=== PATIENT | male | born 2005 | race Caucasian/White ===

== ENCOUNTER 2024-09-26 13:13 | Emergency (ER) | payer BC, SELFPAY ==
[2024-09-26 13:14] VITALS: BP 119/87; PULSE 104; RESP 16; TEMP 36.4; O2SAT 98; BMI 25.8
[2024-09-26] MEDS: Lidocaine 1% (20 ml mdv) 20 ML Vial INFILT (15:00)
--- NOTE | 2024-09-26 15:32 | EDS_ITS ---
HPI History of Present Illness Chief Complaint: Laceration Informant: patient and spouse/S.O. Narrative Narrative: 19-year-old male presenting to the emergency room with left hand laceration. Patient was cutting an avocado with a kitchen knife when he sustained a laceration to the left ring finger. He notes some mild bleeding. Unsure of last tetanus but does not wish it to be updated. PFSH PFSH Allergy/AdvReac Type Severity Reaction Status Date / Time Penicillins (PCN) Allergy Unknown UNKNOWN Verified 09/26/24 13:14 Social History Smoking Status: Never smoker ROS ROS ED Constitutional Constitutional ED: Denies chills or weight loss Eyes Eyes: Denies change in vision or diplopia ENT ENT ED: Denies ear pain, rhinorrhea or sore throat Cardiovascular Cardiovascular: Denies chest pain, orthopnea, palpitations or racing heartbeat Respiratory/Chest Respiratory/Chest: Denies cough, dyspnea or orthopnea Gastrointestinal Gastrointestinal: Denies abdominal pain, diarrhea, nausea or vomiting Genitourinary Genitourinary ED: Denies dysuria, hematuria or urinary frequency Musculoskeletal Musculoskeletal: Denies arthralgias or myalgias Integumentary Reports other Details: Finger laceration ; Denies abscess or rash Neurologic Neurologic: Denies headache(s) or weakness Psychiatric Psychiatric: Denies anxiety, depression, suicidal ideation or suicidal thoughts Endocrine Endocrinology: Denies polydipsia, polyphagia or polyuria Allergic/Immunologic Allergic/Immunologic ED: Denies mouth swelling, tongue swelling or urticaria EXAM Physical Exam Const Vital Signs: 09/26/24 13:14 Temperature 97.6 F L Temperature Source Temporal Pulse Rate 104 H Respiratory Rate 16 Blood Pressure 119/87 H Blood Pressure Mean 97 Pulse Ox 98 Oxygen Delivery Method Room Air Positive well nourished and well developed General Appearance ED: well developed HEENT Reports normocephalic, head/scalp atraumatic and moist mucous membranes Eyes PERRL and EOMs intact bilaterally Neck no lymphadenopathy, supple and no JVD Resp normal respiratory effort and clear to auscultation bilaterally Cardio regular rate, regular rhythm and no murmurs GI normal to inspection, nondistended, normoactive bowel sounds and non-tender Palpation: soft Back/Spine no CVA tenderness and normal ROM Extremity normal to inspection General Extremety ED: Negative for edema General Extremity: Negative for edema Neuro oriented x3 and CN's II-XII intact bilaterally Sensorium / Orientation: alert Motor Exam: strength 5/5 throughout Psych mental status grossly normal Mood & Affect: Negative for depressed or tearful Skin no rashes or lesions noted Skin Narrative: There is a 2.5 cm V-shaped laceration over the dorsum of the left ring finger. There is mild venous bleeding. Neurovascularly he is intact distally. I do not appreciate any tendon or joint involvement. No nail involvement MDM MDM MDM Narrative Medical decision making narrative: Differential diagnosis includes but not limited to laceration neurovascular injury tendon injury bone injury joint injury foreign body Wound was locally anesthetized using 1% lidocaine. Wound was explored washed with Shur-Clens and explored. It was closed using a total of 6 simple erupted 4-0 Ethilon sutures. Local wound care discussed with patient wound was cleansed and dressed. Follow-up 10 days for suture removal History & Record Review Discussion w/independent historian: Patient and Significant other Discharge Plan Triage Chief Complaint: Laceration ED Provider: Diego San Dx/Rx/DC Orders Clinical Impression: Finger laceration Instructions: ED Laceration, Hand: All Closures Primary Care Provider: Care Physician,No Primary Referrals: [facility] [Provider Group] - 10 Day for suture removal Care Physician,No Primary [Primary Care Provider] - Activity Restrictions/Additional Instructions: Is okay to take a shower with the stitches. I would keep the wound covered. Antibiotic ointment 1 time a day. Monitor for signs of infection return if any concerns Print Language: Telugu Disposition Disposition: Home, Self Care Discharge Date/Time: 09/26/24 15:31
== END 2024-09-26 15:31 | disposition home or self-care (01) ==
PROVIDERS: Emergency Provider Emergency Medicine; Visit Provider Emergency Medicine
DX: S61.215A Laceration without foreign body of left ring finger without damage to nail, initial encounter (principal); W26.0XXA Contact with knife, initial encounter
CPT/HCPCS: 12001; 99283